=== PATIENT | male | born 1975 | race American Indian/Alaskan Native ===

== ENCOUNTER 2017-11-04 21:07 | Emergency (ER) | payer MEDICAID ==
[2017-11-04 21:07] VITALS: BMI 45.1
[2017-11-04 21:25] VITALS: BP 124/72
[2017-11-04 22:02] LABS: BASO # 0.1 K/uL (0.0-0.2); BASO % 0.8 % (0.0-2.0); EOS # 0.3 K/uL (0.0-0.7); EOS % 4.2 % (0.0-4.0); HEMATOCRIT 37.6 % (35.0-51.0); LYMPH # 2.6 K/uL (1.0-4.3); LYMPH % 31.3 % (20.0-40.0); MEAN CELL VOLUME 94.8 fl (80.0-94.0); MEAN CORPUSCULAR HEMOGLOBIN 30.3 pg (27.0-31.0); MEAN PLATELET VOLUME 7.8 fl (7.2-11.7); MONO # 0.5 K/uL (0.0-0.8); MONO % 5.9 % (0.0-10.0); NEUT # 4.9 K/uL (1.8-7.0); NEUT % 57.8 % (50.0-75.0); RED CELL DISTRIBUTION WIDTH 14.6 % (11.5-14.5); WHITE BLOOD COUNT 8.4 K/uL (4.8-10.8)
[2017-11-04 22:12] LABS: ALB/GLOB RATIO 1.2 (1.0-2.1); ALCOHOL SERUM < 10 mg/dl (0-10); ALKALINE PHOSPHATASE 104 U/L (38-126); ALT/SGPT 32 U/L (21-72); AST/SGOT 23 U/L (17-59); BILIRUBIN,TOTAL 0.3 mg/dl (0.2-1.3); BLOOD UREA NITROGEN 18 mg/dl (9-20); CALCIUM 8.8 mg/dL (8.4-10.2); CARBON DIOXIDE 31 mmol/L (22-30); CHLORIDE 107 mmol/L (98-107); GFR AFRICAN-AMERICAN > 60; GLUCOSE,RANDOM 203 mg/dL (75-110); MAGNESIUM 2.2 MG/DL (1.6-2.3); PHOSPHOROUS 3.7 mg/dl (2.5-4.5); POTASSIUM 4.8 MMOL/L (3.6-5.0); SODIUM 145 mmol/l (132-148); TOTAL PROTEIN 7.2 G/DL (6.3-8.2)
--- NOTE | 2017-11-04 22:32 | ED PDOC ---
HPI: Altered Mental Status Time Seen by Provider: 11/04/17 21:24 Chief Complaint (Nursing): Altered Mental Status Chief Complaint (Provider): Altered Mental Status History Per: Patient, EMS Onset/Duration Of Symptoms: Days (x 1) Current Symptoms Are (Timing): Still Present Additional Complaint(s): 42 year old male who presents to ED for evaluation after being found unresponsive. Per EMS, [place] He is now awake and reports that he was just tired. History might be unreliable due to intoxication. Patient also reports a history of seizures but is not on any medications. Previous charts show demonstrate alcohol abuse. Patient outright denies drugs or alcohol. Unable to obtain review of systems because of altered mental status. PMD: none Past Medical History Reviewed: Historical Data, Nursing Documentation, Vital Signs Vital Signs: Last Vital Signs Temp 96.1 F L 11/04/17 21:20 Pulse 72 11/04/17 21:20 Resp 11 L 11/04/17 21:20 BP 124/72 11/04/17 21:20 Pulse Ox 97 11/04/17 21:20 - Medical History PMH: Back Problems, Depression, Diabetes, HTN, Schizophrenia, Seizures, Chronic Pain - Family History Family History: States: Unknown Family Hx - Home Medications Home Medications: Ambulatory Orders Medication Instructions Recorded No Known Home Med 01/29/17 - Allergies Allergies/Adverse Reactions: Allergies Allergy/AdvReac Type Severity Reaction Status Date / Time No Known Allergies Allergy Verified 11/04/17 21:24 Review of Systems ROS Statement: Except As Marked, All Systems Reviewed And Found Negative Review Of Systems: ROS cannot be obtained secondary to pt's inabilty to answer questions. (altered mental status) Physical Exam - Reviewed Nursing Documentation Reviewed: Yes Vital Signs Reviewed: Yes - Physical Exam Appears: Positive for: No Acute Distress (well developed well nourished) Head Exam: Positive for: ATRAUMATIC, NORMOCEPHALIC Skin: Positive for: Warm, Dry Eye Exam: Positive for: EOMI, PERRL ENT: Negative for: Pharyngeal Erythema, Tonsillar Exudate Neck: Positive for: Painless ROM, Supple Cardiovascular/Chest: Positive for: Regular Rate, Rhythm, Chest Non Tender. Negative for: Murmur Respiratory: Positive for: Normal Breath Sounds. Negative for: Wheezing Gastrointestinal/Abdominal: Positive for: Soft. Negative for: Tenderness Back: Positive for: Normal Inspection. Negative for: Muscle Spasm Extremity: Positive for: Normal ROM. Negative for: Deformity Lymphatic: Negative for: Adenopathy Neurologic/Psych: Positive for: Mood/Affect (angry and agitated), Other (sleepy but arousable to voice). Negative for: Alert, Motor/Sensory Deficits - Laboratory Results Result Diagrams: 11/04/17 21:58 11/04/17 21:58 - ECG O2 Sat by Pulse Oximetry: 97 (RA) Pulse Ox Interpretation: Normal Medical Decision Making Medical Decision Making: Time: 21:49 Impression: Altered Mental Status Differential diagnoses include but are not limited to drug/alcohol intoxication , dehydration, electrolyte abnormalities Initial Plan: --Urine drug screen --Urine dipstick --alcohol serum --CMP --Creatine phosphokinase --lactic acid, plasma --magnesium --phosphorus --CBC with differentials --As nurse was obtaining blood work and placing a line, patient reported arm hurt and then proceeded to complain about everyone bothering him and asking him too many questions. --Reviewed patient's previous drug screen, demonstrated PCP and marijuana use 1210am Pending Uds, otherwise no significant lab abnormalities. Scribe Attestation: Documented by Mimi Gates, acting as a scribe for Juliann Hamm MD Provider Scribe Attestation: All medical record entries made by the Scribe were at my direction and personally dictated by me. I have reviewed the chart and agree that the record accurately reflects my personal performance of the history, physical exam, medical decision making, and the department course for this patient. I have also personally directed, reviewed, and agree with the discharge instructions and disposition Disposition - Clinical Impression Clinical Impression: Altered mental status - Disposition Disposition: Transfer of Care Disposition Time: 00:00 Condition: STABLE Forms: Shoulder Tap (American) Patient Signed Over To: George Koenig Handoff Comments: Pending sobriety
--- NOTE | 2017-11-05 00:21 | ED PDOC ---
- Laboratory Results Result Diagrams: 11/04/17 21:58 11/04/17 21:58 - ECG O2 Sat by Pulse Oximetry: 97 (RA) Pulse Ox Interpretation: Normal Medical Decision Making Medical Decision Makin:00 Patient signed over to me from Dr. Hamm. Clinical sobriety pending. 0330 am Patient is alert and awake. Patient is stable and improved at this time. Scribe Attestation: Documented by Salma Lafleur, acting as a scribe for George Koenig MD. Provider Scribe Attestation: All medical record entries made by the Scribe were at my direction and personally dictated by me. I have reviewed the chart and agree that the record accurately reflects my personal performance of the history, physical exam, medical decision making, and the department course for this patient. I have also personally directed, reviewed, and agree with the discharge instructions and disposition. Disposition Doctor Will See Patient In The: Office Counseled Patient/Family Regarding: Studies Performed, Diagnosis, Need For Followup - Clinical Impression Clinical Impression: PCP (phencyclidine) abuse, Substance abuse - POA Present On Arrival: None - Disposition Disposition: Left W/O Treatment Disposition Time: 04:34 Condition: STABLE
[2017-11-05 03:25] VITALS: PULSE 93; RESP 19; TEMP 98
[2017-11-05 04:34] VITALS: O2SAT 97
== END 2017-11-05 04:39 | disposition home or self-care (01) ==
LOC: H.ER 21:07
DX: F16.10 Hallucinogen abuse, uncomplicated (principal); Z86.59 Personal history of other mental and behavioral disorders; R56.9 Unspecified convulsions; I10 Essential (primary) hypertension; G89.29 Other chronic pain; F12.90 Cannabis use, unspecified, uncomplicated; E11.9 Type 2 diabetes mellitus without complications

== ENCOUNTER 2018-01-23 16:44 | Emergency (ER) | payer MEDICAID ==
[2018-01-23 16:44] VITALS: BMI 45.1
[2018-01-23 16:51] VITALS: BP 110/78; PULSE 88; RESP 16; TEMP 98; O2SAT 100
== END 2018-01-23 16:53 | disposition left against medical advice (07) ==
LOC: H.ER 16:44
DX: Z02.89 Encounter for other administrative examinations (principal)

== ENCOUNTER 2018-01-30 12:02 | Emergency (ER) | payer MEDICAID ==
[2018-01-30 12:14] VITALS: BMI 30.7
[2018-01-30 12:25] VITALS: TEMP 97.3
--- NOTE | 2018-01-30 12:40 | ED PDOC ---
HPI: Seizure Time Seen by Provider: 01/30/18 12:12 Chief Complaint (Nursing): Seizure History Per: Patient History/Exam Limitations: no limitations Number Of Seizures: One Quality Of Seizure: Generalized Post-ictal Period: No Severity: Mild Additional History Per: Patient Additional Complaint(s): Pt. found on the sidewalk, awake, disoriented, witnessed seizure by [employer] standy, with generalized motor activity and vomited x1. Pt. arrived in ED with gauge#20 angiocath to left hand, with IVF NS 0.9% 500ml bag infusing. Pt. awake, lethargic, oriented x 3, wants to go home. multiple vists to this ed for the say known etoh and pcp abuser, denies any drug or etoh use today Against Medical Advice - AMA Patient Left Against Medical Advice: The patient declines admission to the hospital and wishes to leave the Emergency Department. This action is against my medical advice. This decision was made with informed refusal. The patient was told that admission to the hospital is necessary. Explanation of the reasons why were discussed. The risks of leaving were explained to the patient and include, but are not limited to, worsening of known or currently unknown conditions, permanent disability and from undiagnosed or untreated conditions. The patient has the capacity to make this informed decision and understands my explanation of the current medical problem and risks of leaving. The patient voluntarily accepts these risks and signed an AMA form documenting our conversation. The patient was given the opportunity to ask questions and reconsider. The patient was encouraged to return to the Emergency Department at any time for further care. Past Medical History Reviewed: Historical Data, Nursing Documentation, Vital Signs Vital Signs: Last Vital Signs Temp 97.3 F L 01/30/18 12:20 Pulse 83 01/30/18 13:07 Resp 14 01/30/18 13:07 BP 101/70 01/30/18 13:07 Pulse Ox 100 01/30/18 13:07 - Medical History PMH: Back Problems, Depression, Diabetes, HTN, Schizophrenia, Seizures, Chronic Pain - Family History Family History: States: Unknown Family Hx - Living Arrangements Living Arrangements: With Family - Social History Current smoker - smoking cessation education provided: No - Immunization History Hx Tetanus Toxoid Vaccination: No Hx Influenza Vaccination: No Hx Pneumococcal Vaccination: No - Home Medications Home Medications: Ambulatory Orders Medication Instructions Recorded No Known Home Med 01/29/17 - Allergies Allergies/Adverse Reactions: Allergies Allergy/AdvReac Type Severity Reaction Status Date / Time No Known Allergies Allergy Verified 01/23/18 17:29 Review of Systems ROS Statement: Except As Marked, All Systems Reviewed And Found Negative Constitutional: Negative for: Fever, Chills Cardiovascular: Negative for: Chest Pain, Palpitations Respiratory: Negative for: Cough, Shortness of Breath Gastrointestinal: Positive for: Nausea, Vomiting. Negative for: Abdominal Pain , Diarrhea Musculoskeletal: Negative for: Neck Pain Neurological: Positive for: Confusion, Seizures. Negative for: Weakness, Numbness, Headache Physical Exam - Reviewed Nursing Documentation Reviewed: Yes Vital Signs Reviewed: Yes - Physical Exam Appears: Positive for: Uncomfortable Head Exam: Positive for: ATRAUMATIC, NORMAL INSPECTION, NORMOCEPHALIC Skin: Positive for: Normal Color, Warm, Dry Eye Exam: Positive for: Normal appearance, EOMI, PERRL Neck: Positive for: Normal, Painless ROM, Supple Cardiovascular/Chest: Positive for: Regular Rate, Rhythm, Chest Non Tender. Negative for: Edema, Gallop, Murmur, Bradycardia, Tachycardia Respiratory: Positive for: Normal Breath Sounds. Negative for: Decreased Breath Sounds, Accessory Muscle Use, Crackles, Rales, Rhonchi, Stridor, Wheezing Pulses-Radial (L): 2+ Pulses-Radial (R): 2+ Gastrointestinal/Abdominal: Positive for: Normal Exam, Bowel Sounds, Soft. Negative for: Tenderness Back: Positive for: Normal Inspection. Negative for: L CVA Tenderness, R CVA Tenderness Extremity: Positive for: Normal ROM. Negative for: Tenderness, Pedal Edema Neurologic/Psych: Positive for: Alert, features editor II-XII, Oriented. Negative for: Motor/Sensory Deficits, Aphasia, Facial Droop - Laboratory Results Result Diagrams: 01/30/18 12:43 01/30/18 12:43 - ECG ECG: Positive for: Interpreted By Me ECG Rhythm: Positive for: Normal QRS, Normal ST Segment, Sinus Rhythm (83). Negative for: ST/T Changes O2 Sat by Pulse Oximetry: 98 Pulse Ox Interpretation: Normal - Radiology X-Ray: Interpreted by Me X-Ray Interpretation: No Acute Disease - Progress ED Course And Treament: pt vs are nml, pt has no sx, pt desires immediate discharge, understands that leaving ama put the pt at substantial risks the pt is A&Ox3 at this time and adequate decision making capability. Re-evaluation Time: 13:18 Condition: Improved Disposition - Clinical Impression Clinical Impression: Seizure disorder - Patient ED Disposition Is Patient to be Admitted: No Counseled Patient/Family Regarding: Studies Performed, Diagnosis, Need For Followup - Disposition Referrals: [facility] [Outside] (stephy or your own pmd) Disposition: Against Medical Advice Disposition Time: 13:20 Condition: STABLE Instructions: Seizures, Adult (DC) Forms: [employer] (Pashto)
[2018-01-30 13:02] LABS: BASO # 0.1 K/uL (0.0-0.2); BASO % 0.8 % (0.0-2.0); EOS % 0.4 % (0.0-4.0); HEMOGLOBIN 12.5 g/dL (12.0-18.0); LYMPH # 1.1 K/uL (1.0-4.3); LYMPH % 12.2 % (20.0-40.0); MEAN CELL VOLUME 94.1 fl (80.0-94.0); MEAN CORPUSCULAR HEMOGLOBIN 30.9 pg (27.0-31.0); MEAN CORPUSCULAR HGB CONC 32.9 g/dL (33.0-37.0); MEAN PLATELET VOLUME 7.6 fl (7.2-11.7); MONO # 0.6 K/uL (0.0-0.8); MONO % 6.8 % (0.0-10.0); NEUT # 7.5 K/uL (1.8-7.0); NEUT % 79.8 % (50.0-75.0); RBC 4.05 Mil/uL (4.40-5.90); WHITE BLOOD COUNT 9.4 K/uL (4.8-10.8)
[2018-01-30 13:04] LABS: SQUAMOUS EPITHIAL < 1 /hpf (0-5); URINE BILIRUBIN NEGATIVE (NEGATIVE); URINE BLOOD NEGATIVE (NEGATIVE); URINE CLARITY SLIGHTY-CLOUDY (Clear); URINE COLOR YELLOW (YELLOW); URINE GLUCOSE (UA) NEG (Normal); URINE LEUKOCYTE ESTERASE NEG Leu/uL (Negative); URINE NITRATE NEGATIVE (NEGATIVE); URINE PROTEIN NEGATIVE (NEGATIVE); URINE UROBILINOGEN 0.2-1.0 mg/dL (0.2-1.0)
[2018-01-30 13:06] LABS: ALBUMIN 3.6 g/dL (3.5-5.0); ALT/SGPT 32 U/L (21-72); AST/SGOT 19 U/L (17-59); BLOOD UREA NITROGEN 20 mg/dl (9-20); CALCIUM 9.1 mg/dL (8.4-10.2); GFR AFRICAN-AMERICAN 53; GFR NON-AFRICAN AMERICAN 44; LIPASE 72 U/L (23-300); PROTHROMBIN TIME 10.9 Seconds (9.8-13.1)
[2018-01-30 13:17] LABS: B-TYPE NATRIURETIC PEPTIDE 38.1 pg/ml (0-450)
[2018-01-30 13:23] LABS: BARBITURATES, UR NEGATIVE (NEGATIVE); BENZODIAZEPINES, UR NEGATIVE (NEGATIVE); OPIATES, UR NEGATIVE (NEGATIVE); PHENCYCLIDINE, UR POSITIVE (NEGATIVE)
--- NOTE | 2018-01-30 13:46 | CT ---
PROCEDURE: CT HEAD WITHOUT CONTRAST. HISTORY: new onset seizure COMPARISON: 04/27/2015 TECHNIQUE: Axial computed tomography images were obtained through the head/brain without intravenous contrast. Radiation dose: Total exam DLP = 1466.78 mGy-cm. This CT exam was performed using one or more of the following dose reduction techniques: Automated exposure control, adjustment of the mA and/or kV according to patient size, and/or use of iterative reconstruction technique. FINDINGS: HEMORRHAGE: No intracranial hemorrhage. BRAIN: No mass effect or edema. No atrophy or chronic microvascular ischemic changes. VENTRICLES: Unremarkable. No hydrocephalus. CALVARIUM: Unremarkable. PARANASAL SINUSES: Mild chronic ethmoid sinusitis MASTOID AIR CELLS: Unremarkable as visualized. No inflammatory changes. OTHER FINDINGS: None. IMPRESSION: No intracranial mass, hemorrhage or evidence of acute infarct. Mild chronic ethmoid sinusitis. Otherwise unremarkable examination.
[2018-01-30 14:33] VITALS: O2SAT 100
[2018-01-30] MEDS ORDERED: Sodium Chloride 0.9% 2,000 ML IV ONE (14:47)
--- NOTE | 2018-01-30 14:58 | RAD ---
PROCEDURE: CHEST RADIOGRAPH, 1 VIEW HISTORY: cp COMPARISON: Chest radiographs 01/28/2017. FINDINGS: LUNGS: Diminished history volume is appreciated. Fluid is questioned in the minor fissure. No definite infiltrate bilaterally. PLEURA: No pneumothorax or pleural fluid seen. CARDIOVASCULAR: Normal. OSSEOUS STRUCTURES: No significant abnormalities. VISUALIZED UPPER ABDOMEN: Normal. OTHER FINDINGS: None. IMPRESSION: Trace fluid is question in the minor fissure. No infiltrate bilaterally. Diminished inspiratory volume.
[2018-01-30 15:04] VITALS: BP 124/76; PULSE 83; RESP 14
--- NOTE | 2018-01-31 18:09 | CARD ---
APPROVED REPORT EKG Measurement Heart [id number] <Conclusion> Normal sinus rhythm Nonspecific ST and T wave abnormality Prolonged QT Abnormal ECG
== END 2018-01-30 15:28 | disposition home or self-care (01) ==
LOC: H.ER 12:02
DX: R56.9 Unspecified convulsions (principal); J32.2 Chronic ethmoidal sinusitis
CPT/HCPCS: 70450; 71045; 80053; 80324; 80345; 80346; 80349; 80353; 80358; 80361; 81003; 82948; 83690; 83735; 83880; 83992; 84484; 85025; 85610; 85730; 93005; 99285; J7040